=== PATIENT | female | born 1975 ===

== ENCOUNTER 2023-04-21 08:59 | Outpatient (CLI) | payer OTHER ==
[~2023-04-21 08:59] MED LIST: PRENATAL TABLE1 EAC1 PO; ZANTAC150 MG PO
== END 2023-04-21 09:16 | disposition home or self-care (01) ==
LOC: SONOGRAMA 08:59
PROVIDERS: ATTEND Pathology Anatomic Pathology & Clinical Pathology
DX: D34 Benign neoplasm of thyroid gland (principal)